=== PATIENT | male | born 1945 | race Caucasian/White ===

== ENCOUNTER 2020-12-23 07:17 | Outpatient (CLI) | payer MEDICARE, SELFPAY ==
--- NOTE | ~2020-12-23 | XR_ITS ---
EXAMINATION: XR abdomen/kub 1V EXAM DATE: 12/23/2020 07:36 INDICATION: Microscopic hematuria. TECHNIQUE: Frontal projection(s) of the abdomen for interpretation. Correlation is made to CT abdomen pelvis same date. FINDINGS: There is expected amount of colonic stool and gas. No small bowel dilation, nonobstructiv e bowel gas pattern. There are no suspicious calcifications identified. There is no organomegaly suspected. The bones are unremarkable. Lung bases unremarkable. IMPRESSION: Unremarkable abdomen x-ray exam. Reviewed, dictated and finalized at location B.
--- NOTE | ~2020-12-23 | CT_ITS ---
EXAMINATION: CT abdomen pelvis wo/w con EXAM DATE: 12/23/2020 08:40 INDICATION: Microscopic hematuria. TECHNIQUE: Spiral CT of the abdomen and pelvis was performed without contrast. The patient was then injected with small bolus intravenous Omnipaque 350, followed by delay of approximately 10 minutes to allow collecting system to opacify. A post contrast scan abdomen and pelvis was performed during inj ection of remaining contrast. A total of 130 cc intravenous contrast was administered. The dose-rosalia th product (DLP) for this examination was 2545.18 mGy-cm. The exposure was tailored according to pat ient size (auto mA exposure control), and iterative reconstruction (ASIR) was used as additional dose reduction technique. There is no prior study for comparison. FINDINGS: There is no hydronephrosis or nephrolithiasis. Bilateral renal peripelvic cysts, larger on the left side simulating hydronephrosis. The kidneys enhance symmetrically. There are no suspiciou s renal lesions. The calyces and opacified portions of ureters are unremarkable, without filling def ects or focal suspicious strictures. The bladder is unremarkable. Prostate measures up to 5.8 cm, a nd projects into the bladder base. The liver, spleen, adrenal glands and pancreas are unremarkable. Gallbladder is unremarkable. No bi liary obstruction. There is no retroperitoneal or pelvic lymphadenopathy. There is mild scattered arteriosclerotic disease. There is moderate to severe colonic diverticulosis. There is no adjacent inflammatory change to sugg est diverticulitis. There is small sliding gastroesophageal hiatal hernia. There is expected amount of colonic stool. No free intraperitoneal gas. The heart is normal in size. There are no pericar dial or pleural effusions. The lung bases are unremarkable. Sclerosis of the right pubis symphysis measuring about 2.8 cm. There is no other sclerotic focus in t he left 11th rib posterior medially. 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 Recommend correlating with PSA and considering bone scan. Small inguinal and umbilical fat -containing hernias. IMPRESSION: 1. Renal peripelvic cysts. No suspicious genitourinary findings. 2. Moderate prostatomegaly. Two osseous sclerotic foci, indeterminate. Recommend PSA, possible bone scan. 3. Moderate to severe colonic diverticulosis. 4. Small hernias. Reviewed, dictated and finalized at location B. IMPRESSION: 1. Renal peripelvic cysts. No suspicious genitourinary findings. 2. Moderate prostatomegaly. Two osseous sclerotic foci, indeterminate. Recomme nd PSA, possible bone scan. 3. Moderate to severe colonic diverticulosis. 4. Small hernias.
[2020-12-23 08:21] LABS: Estimated Glomerular Filt Rate > 60
== END 2020-12-23 07:18 | disposition home or self-care (01) ==
PROVIDERS: Visit Provider Urology
DX: R31.29 Other microscopic hematuria (principal); K44.9 Diaphragmatic hernia without obstruction or gangrene; K57.30 Diverticulosis of large intestine without perforation or abscess without bleeding; N40.0 Benign prostatic hyperplasia without lower urinary tract symptoms
CPT/HCPCS: 74018; 74178; Q9967